=== PATIENT | male | born 1950 | race Caucasian/White ===

== ENCOUNTER 2020-09-24 17:42 | Inpatient (IN) | payer MEDICARE ==
[~2020-09-24] VITALS: Ht 170.2 cm; Wt 106.6 kg
[2020-09-24] MEDS ORDERED: VANCOMYCIN 1GM/NS 250 ML 250 ML IV STA (18:01)
[2020-09-24 18:09] LABS: BASOPHILS # (AUTO) 0.1 (0.0-0.1); BASOPHILS % 0.4 % (0.0-1.0); EOSINOPHILS # (AUTO) 0.1 (0.0-0.4); EOSINOPHILS % 0.4 % (0.0-6.0); HEMATOCRIT 42.5 % (38.2-49.6); HEMOGLOBIN 14.6 g/dL (14.0-18.0); LYMPHOCYTES # (AUTO) 2.8 (1.0-3.2); LYMPHOCYTES % 23.3 % (18.0-39.1); MEAN CORPUSCULAR HEMOGLOBIN 32.7 pg (28-32); MEAN CORPUSCULAR HGB CONC 34.4 g/dL (31-35); MEAN CORPUSCULAR VOLUME 95.1 fL (81-99); MONOCYTES # (AUTO) 1.3 (0.2-0.8); NEUTROPHILS # (AUTO) 7.3 (2.1-6.9); NEUTROPHILS % 61.5 % (38.7-80.0); PLATELET COUNT 301 x10e3/uL (140-360); RED BLOOD COUNT 4.47 x10e6/uL (4.3-5.7); RED CELL DISTRIBUTION WIDTH 14.4 % (11.7-14.4)
[2020-09-24] MEDS: CEFEPIME 1GM/NS 0.9% 50 ML 50 ML IV SCH (18:15)
[2020-09-24] MEDS ORDERED: LOSARTAN POTASS25 MG PO (18:26)
[2020-09-24] MEDS ORDERED: CLOPIDOGREL75 MG PO (18:26)
[2020-09-24] MEDS ORDERED: VERAPAMIL ER120 M1 PO (18:26)
[2020-09-24] MEDS ORDERED: CLONIDINE HCL0.1 MG PO (18:26)
[2020-09-24] MEDS ORDERED: METOPROLOL TART50 MG PO (18:26)
[2020-09-24] MEDS ORDERED: SPIRONOLACTONE25 MG PO (18:26)
[2020-09-24 18:32] LABS: ALANINE AMINOTRANSFERASE 28 IU/L (0-55); ALBUMIN 3.8 g/dL (3.5-5.0); ALBUMIN/GLOBULIN RATIO 0.9 (0.8-2.0); ALKALINE PHOSPHATASE 90 IU/L (40-150); ANION GAP 15.2 mmol/L (8-16); BLOOD UREA NITROGEN 27 mg/dL (7-26); BUN/CREATININE RATIO 22 (6-25); CALCIUM 10.4 mg/dL (8.4-10.2); CARBON DIOXIDE 27 mmol/L (22-29); CHLORIDE 100 mmol/L (98-107); CREATINE KINASE 116 IU/L (30-200); CREATININE, SERUM 1.24 mg/dL (0.72-1.25); EST GLOMERULAR FILTRATION RATE 58 ML/MIN (60-); GLUCOSE 96 mg/dL (74-118); POTASSIUM 4.2 mmol/L (3.5-5.1); SODIUM 138 mmol/L (136-145)
[2020-09-24] MEDS ORDERED: FINASTERIDE5 MG PO (18:54)
[2020-09-24] MEDS ORDERED: OMEPRAZOLE40 MG PO (18:54)
[2020-09-24] MEDS ORDERED: ASPIRIN CHEW81 MG PO (18:54)
[2020-09-24] MEDS ORDERED: LIPITOR20 MG PO (18:54)
[2020-09-24] MEDS ORDERED: GLIMEPIRIDE2 MG PO (18:54)
[2020-09-24] MEDS ORDERED: ALLOPURINOL300 MG PO (18:54)
[2020-09-24] MEDS ORDERED: CHLORTHALIDONE25 MG PO (18:54)
[2020-09-24] MEDS ORDERED: DEXTROSE 50% SYRINGE 50 ML IV PRN (21:00)
[2020-09-24] MEDS: INSULIN REGULAR, HUMAN 100 UNIT/1 ML 3ML VIAL SQ SCH (21:00)
[2020-09-24 21:10] VITALS: BP 109/57
[2020-09-24 21:23] VITALS: BP 146/73
[2020-09-24] MEDS: ONDANSETRON HCL INJ 2MG/ML 2ML 2 MG/ML VIAL IV PRN (23:08)
[2020-09-25] VITALS: BP 117/67
[2020-09-25] MEDS: PROMETHAZINE 12.5MG/ NACL 0.9% 12.5 MG/50 ML BAG IV PRN ×2 (01:22→20:49)
[2020-09-25] MEDS: MORPHINE SULFATE 2 MG/ML SYR 1ML IV PRN ×5 (01:22→20:49)
[2020-09-25] MEDS ORDERED: SODIUM CHLORIDE 0.9% 250ML 250 ML ONE (01:27)
[2020-09-25 04:00] VITALS: BP 140/58
[2020-09-25 05:22] LABS: BASOPHILS % 0.3 % (0.0-1.0); EOSINOPHILS % 0.2 % (0.0-6.0); HEMOGLOBIN 12.6 g/dL (14.0-18.0); LYMPHOCYTES # (AUTO) 0.9 (1.0-3.2); LYMPHOCYTES % 8.2 % (18.0-39.1); MEAN CORPUSCULAR HEMOGLOBIN 32.7 pg (28-32); MEAN CORPUSCULAR HGB CONC 34.1 g/dL (31-35); MEAN CORPUSCULAR VOLUME 96.1 fL (81-99); MONOCYTES # (AUTO) 1.2 (0.2-0.8); MONOCYTES % 10.7 % (4.4-11.3); NEUTROPHILS # (AUTO) 8.8 (2.1-6.9); NEUTROPHILS % 78.5 % (38.7-80.0); PLATELET COUNT 240 x10e3/uL (140-360); RED BLOOD COUNT 3.85 x10e6/uL (4.3-5.7); RED CELL DISTRIBUTION WIDTH 14.5 % (11.7-14.4)
[2020-09-25 05:59] LABS: ALBUMIN/GLOBULIN RATIO 0.9 (0.8-2.0); ANION GAP 13.5 mmol/L (8-16); CALCIUM 9.1 mg/dL (8.4-10.2); CREATININE, SERUM 1.23 mg/dL (0.72-1.25); POTASSIUM 4.5 mmol/L (3.5-5.1)
[2020-09-25] MEDS: INSULIN REGULAR, HUMAN 100 UNIT/1 ML 3ML VIAL SQ SCH ×4 (07:30→20:51)
[2020-09-25] MEDS: CHLORTHALIDONE 25 MG TAB PO SCH (08:00)
[2020-09-25] MEDS: SPIRONOLACTONE 25 MG TAB PO SCH (08:00)
[2020-09-25] MEDS: ASPIRIN 81 MG CHEW TAB PO SCH (08:00)
[2020-09-25] MEDS: METOPROLOL TARTRATE 50 MG TAB PO SCH ×3 (08:01→20:50)
[2020-09-25] MEDS: ALLOPURINOL 300 MG TAB PO SCH (08:10)
[2020-09-25] MEDS: FINASTERIDE 5 MG TAB PO SCH (08:10)
[2020-09-25] MEDS: CLOPIDOGREL BISULFATE 75 MG TAB PO SCH (08:10)
[2020-09-25] MEDS: PANTOPRAZOLE SOD 40 MG TABEC PO SCH (08:10)
[2020-09-25 08:48] VITALS: BP 133/65
[2020-09-25] MEDS: LOSARTAN POTASSIUM 25 MG TAB PO SCH ×3 (09:00→20:50)
[2020-09-25] MEDS ORDERED: GLIMEPIRIDE 2 MG TAB PO SCH (09:00)
[2020-09-25] MEDS: VANCOMYCIN 1GM/NS 250 ML 250 ML IV SCH ×2 (10:20→22:06)
[2020-09-25] MEDS: DIPHENHYDRAMINE HCL INJ 50 MG/ML VIAL IV PRN ×3 (10:20→22:06)
[2020-09-25 12:00] VITALS: BP 124/54
[2020-09-25] MEDS: VERAPAMIL HCL 120 MG TABSR PO SCH ×3 (12:30→20:49)
[2020-09-25 16:00] VITALS: BP 124/57
[2020-09-25] MEDS: BALSAM PERU/CASTOR OIL 60 GM OINT...G. TP SCH (17:00)
[2020-09-25] MEDS: CEFEPIME 1GM/NS 0.9% 50 ML 50 ML IV SCH (17:00)
[2020-09-25 20:00] VITALS: BP 153/54
[2020-09-25] MEDS: CLONIDINE HCL 0.1 MG TAB PO SCH (20:50)
[2020-09-25] MEDS: ATORVASTATIN 20 MG TAB PO SCH (20:50)
[2020-09-26] VITALS (9 sets, daily range): BP systolic 97–148; BP diastolic 42–78
[2020-09-26] MEDS: MORPHINE SULFATE 2 MG/ML SYR 1ML IV PRN ×5 (00:44→22:28)
[2020-09-26] MEDS: INSULIN REGULAR, HUMAN 100 UNIT/1 ML 3ML VIAL SQ SCH ×4 (07:30→20:41)
[2020-09-26] MEDS: VERAPAMIL HCL 120 MG TABSR PO SCH ×3 (08:57→21:00)
[2020-09-26] MEDS: ASPIRIN 81 MG CHEW TAB PO SCH (08:57)
[2020-09-26] MEDS: SPIRONOLACTONE 25 MG TAB PO SCH (08:57)
[2020-09-26] MEDS: LOSARTAN POTASSIUM 25 MG TAB PO SCH ×3 (08:58→21:00)
[2020-09-26] MEDS: CHLORTHALIDONE 25 MG TAB PO SCH (08:58)
[2020-09-26] MEDS: CLOPIDOGREL BISULFATE 75 MG TAB PO SCH (08:59)
[2020-09-26] MEDS: FINASTERIDE 5 MG TAB PO SCH (08:59)
[2020-09-26] MEDS: PANTOPRAZOLE SOD 40 MG TABEC PO SCH (08:59)
[2020-09-26] MEDS: ALLOPURINOL 300 MG TAB PO SCH (08:59)
[2020-09-26] MEDS: METOPROLOL TARTRATE 50 MG TAB PO SCH ×3 (08:59→20:47)
[2020-09-26] MEDS: BALSAM PERU/CASTOR OIL 60 GM OINT...G. TP SCH (09:00)
[2020-09-26] MEDS: VANCOMYCIN 1GM/NS 250 ML 250 ML IV SCH ×2 (10:43→23:16)
[2020-09-26] MEDS: DIPHENHYDRAMINE HCL INJ 50 MG/ML VIAL IV PRN ×3 (10:50→23:16)
[2020-09-26] MEDS: CEFEPIME 1GM/NS 0.9% 50 ML 50 ML IV SCH (17:51)
[2020-09-26] MEDS: ATORVASTATIN 20 MG TAB PO SCH (20:47)
[2020-09-26] MEDS: CLONIDINE HCL 0.1 MG TAB PO SCH (21:00)
[2020-09-26] MEDS: ONDANSETRON HCL INJ 2MG/ML 2ML 2 MG/ML VIAL IV PRN (22:28)
[2020-09-27] VITALS (7 sets, daily range): BP systolic 99–141; BP diastolic 52–67
[2020-09-27 05:57] LABS: BASOPHILS % 0.5 % (0.0-1.0); EOSINOPHILS # (AUTO) 0.1 (0.0-0.4); EOSINOPHILS % 1.1 % (0.0-6.0); HEMATOCRIT 31.8 % (38.2-49.6); HEMOGLOBIN 10.7 g/dL (14.0-18.0); LYMPHOCYTES # (AUTO) 1.7 (1.0-3.2); LYMPHOCYTES % 20.2 % (18.0-39.1); MEAN CORPUSCULAR HEMOGLOBIN 32.3 pg (28-32); MEAN CORPUSCULAR HGB CONC 33.6 g/dL (31-35); MEAN CORPUSCULAR VOLUME 96.1 fL (81-99); MONOCYTES # (AUTO) 1.2 (0.2-0.8); MONOCYTES % 14.1 % (4.4-11.3); NEUTROPHILS % 60.4 % (38.7-80.0); PLATELET COUNT 236 x10e3/uL (140-360); RED BLOOD COUNT 3.31 x10e6/uL (4.3-5.7); RED CELL DISTRIBUTION WIDTH 14.4 % (11.7-14.4)
[2020-09-27] MEDS: MORPHINE SULFATE 2 MG/ML SYR 1ML IV PRN ×3 (06:05→19:51)
[2020-09-27] MEDS: ONDANSETRON HCL INJ 2MG/ML 2ML 2 MG/ML VIAL IV PRN ×3 (06:05→19:51)
[2020-09-27 06:22] LABS: ANION GAP 12.6 mmol/L (8-16); BLOOD UREA NITROGEN 28 mg/dL (7-26); BUN/CREATININE RATIO 27 (6-25); CALCIUM 8.8 mg/dL (8.4-10.2); CARBON DIOXIDE 26 mmol/L (22-29); CHLORIDE 102 mmol/L (98-107); CREATININE, SERUM 1.04 mg/dL (0.72-1.25); EST GLOMERULAR FILTRATION RATE > 60 ML/MIN (60-); GLUCOSE 119 mg/dL (74-118); POTASSIUM 4.6 mmol/L (3.5-5.1); SODIUM 136 mmol/L (136-145)
[2020-09-27] MEDS: SPIRONOLACTONE 25 MG TAB PO SCH (09:39)
[2020-09-27] MEDS: ASPIRIN 81 MG CHEW TAB PO SCH (09:39)
[2020-09-27] MEDS: VERAPAMIL HCL 120 MG TABSR PO SCH ×3 (09:40→20:26)
[2020-09-27] MEDS: BALSAM PERU/CASTOR OIL 60 GM OINT...G. TP SCH (09:40)
[2020-09-27] MEDS: CHLORTHALIDONE 25 MG TAB PO SCH (09:40)
[2020-09-27] MEDS: LOSARTAN POTASSIUM 25 MG TAB PO SCH ×3 (09:40→20:26)
[2020-09-27] MEDS: PANTOPRAZOLE SOD 40 MG TABEC PO SCH (09:40)
[2020-09-27] MEDS: FINASTERIDE 5 MG TAB PO SCH (09:40)
[2020-09-27] MEDS: ALLOPURINOL 300 MG TAB PO SCH (09:40)
[2020-09-27] MEDS: CLOPIDOGREL BISULFATE 75 MG TAB PO SCH (09:40)
[2020-09-27] MEDS: METOPROLOL TARTRATE 50 MG TAB PO SCH ×3 (09:40→20:27)
[2020-09-27] MEDS: VANCOMYCIN 1GM/NS 250 ML 250 ML IV SCH ×2 (11:18→23:50)
[2020-09-27] MEDS: DIPHENHYDRAMINE HCL INJ 50 MG/ML VIAL IV PRN (11:18)
[2020-09-27] MEDS: CEFEPIME 1GM/NS 0.9% 50 ML 50 ML IV SCH (13:40)
[2020-09-27] MEDS ORDERED: ENOXAPARIN SOD INJ 40 MG/0.4 ML SYR SC SCH (17:00)
[2020-09-27] MEDS: CLONIDINE HCL 0.1 MG TAB PO SCH (20:26)
[2020-09-27] MEDS: ATORVASTATIN 20 MG TAB PO SCH (20:27)
[2020-09-28] VITALS: BP 120/63
[2020-09-28] MEDS: DIPHENHYDRAMINE HCL INJ 50 MG/ML VIAL IV PRN (00:18)
[2020-09-28] MEDS: MORPHINE SULFATE 2 MG/ML SYR 1ML IV PRN (00:18)
[2020-09-28] MEDS: CEFEPIME 1GM/NS 0.9% 50 ML 50 ML IV SCH ×2 (03:00→14:00)
[2020-09-28 04:25] VITALS: BP 112/68
[2020-09-28 07:35] VITALS: BP 98/71
[2020-09-28 08:30] VITALS: BP 98/71
[2020-09-28] MEDS: CHLORTHALIDONE 25 MG TAB PO SCH (09:00)
[2020-09-28] MEDS: METOPROLOL TARTRATE 50 MG TAB PO SCH (09:00)
[2020-09-28] MEDS: VERAPAMIL HCL 120 MG TABSR PO SCH (09:00)
[2020-09-28] MEDS: LOSARTAN POTASSIUM 25 MG TAB PO SCH (09:00)
[2020-09-28] MEDS: BALSAM PERU/CASTOR OIL 60 GM OINT...G. TP SCH (09:03)
[2020-09-28] MEDS: SPIRONOLACTONE 25 MG TAB PO SCH (09:03)
[2020-09-28] MEDS: ASPIRIN 81 MG CHEW TAB PO SCH (09:03)
[2020-09-28] MEDS: PANTOPRAZOLE SOD 40 MG TABEC PO SCH (09:03)
[2020-09-28] MEDS: FINASTERIDE 5 MG TAB PO SCH (09:03)
[2020-09-28] MEDS: ALLOPURINOL 300 MG TAB PO SCH (09:03)
[2020-09-28] MEDS: CLOPIDOGREL BISULFATE 75 MG TAB PO SCH (09:03)
[2020-09-28 09:41] VITALS: BP 108/71
[2020-09-28] MEDS: VANCOMYCIN 1GM/NS 250 ML 250 ML IV SCH (11:40)
[2020-09-28 13:44] VITALS: BP 119/82
== END 2020-09-28 15:40 | disposition home or self-care (01) | DRG 603 ==
LOC: ER 18:28 → ERHOLD 18:35 → MED/SURG3 21:08
PROVIDERS: ADMIT Family Medicine; ATTEND Family Medicine
PROC: 06HY33Z Insertion of Infusion Device into Lower Vein, Percutaneous Approach (ICD-10-PCS; principal; 2020-09-24)
DX: L03.115 Cellulitis of right lower limb (principal); L97.518 Non-pressure chronic ulcer of other part of right foot with other specified severity; I12.9 Hypertensive chronic kidney disease with stage 1 through stage 4 chronic kidney disease, or unspecified chronic kidney disease; N18.32 Chronic kidney disease, stage 3b; E11.51 Type 2 diabetes mellitus with diabetic peripheral angiopathy without gangrene; Z79.899 Other long term (current) drug therapy; I25.10 Atherosclerotic heart disease of native coronary artery without angina pectoris; S91.111A Laceration without foreign body of right great toe without damage to nail, initial encounter; W19.XXXA Unspecified fall, initial encounter; E66.9 Obesity, unspecified; Z68.36 Body mass index [BMI] 36.0-36.9, adult; Z95.820 Peripheral vascular angioplasty status with implants and grafts; M10.9 Gout, unspecified; I47.9 Paroxysmal tachycardia, unspecified; N40.0 Benign prostatic hyperplasia without lower urinary tract symptoms; E78.5 Hyperlipidemia, unspecified; I11.0 Hypertensive heart disease with heart failure; I50.9 Heart failure, unspecified; D64.9 Anemia, unspecified
CPT/HCPCS: 36415; 80048; 80053; 80202; 82550; 82553; 82948; 83605; 84484; 85025; 87040; 93926; 93971; 99251; 99283; J0692; J1200; J1650; J2270; J2405; J2550; J3370; J7050; U0002

== ENCOUNTER → 2020-10-11 | Outpatient (RCR) | payer MEDICARE ==
[~2020-10-11] MED LIST: ALLOPURINOL300 MG PO; ASPIRIN CHEW81 MG PO; CHLORTHALIDONE25 MG PO; CLONIDINE HCL0.1 MG PO; CLOPIDOGREL75 MG PO; FINASTERIDE5 MG PO; GLIMEPIRIDE2 MG PO; LIPITOR20 MG PO; LOSARTAN POTASS25 MG PO; METOPROLOL TART50 MG PO; OMEPRAZOLE40 MG PO; SPIRONOLACTONE25 MG PO; VERAPAMIL ER120 M1 PO
== END ==
LOC: WCC 12:50
PROVIDERS: ATTEND Family Medicine
DX: E11.51 Type 2 diabetes mellitus with diabetic peripheral angiopathy without gangrene (principal); E11.65 Type 2 diabetes mellitus with hyperglycemia; S81.801A Unspecified open wound, right lower leg, initial encounter; S91.101A Unspecified open wound of right great toe without damage to nail, initial encounter; L03.119 Cellulitis of unspecified part of limb; I87.2 Venous insufficiency (chronic) (peripheral); R60.0 Localized edema; I12.9 Hypertensive chronic kidney disease with stage 1 through stage 4 chronic kidney disease, or unspecified chronic kidney disease; I10 Essential (primary) hypertension; I25.10 Atherosclerotic heart disease of native coronary artery without angina pectoris; D64.9 Anemia, unspecified; E66.3 Overweight; F33.0 Major depressive disorder, recurrent, mild; M1A.9XX0 Chronic gout, unspecified, without tophus (tophi); N40.0 Benign prostatic hyperplasia without lower urinary tract symptoms; Y92.099 Unspecified place in other non-institutional residence as the place of occurrence of the external cause

== ENCOUNTER 2020-10-31 11:23 | Outpatient (RCR) | payer MEDICARE ==
[~2020-10-31 11:23] MED LIST changes: +LIDOCAINE VISC 2% SOLN 15 ML UDC ONE; +LIDOCAINE/PRILOCAINE 2.5-2.5% KIT ONE
== END 2020-11-11 | disposition still patient (30) ==
LOC: WCC 11:23
PROVIDERS: ATTEND Family Medicine
DX: E11.51 Type 2 diabetes mellitus with diabetic peripheral angiopathy without gangrene (principal); E11.65 Type 2 diabetes mellitus with hyperglycemia; S81.801A Unspecified open wound, right lower leg, initial encounter; I87.2 Venous insufficiency (chronic) (peripheral); L03.119 Cellulitis of unspecified part of limb; S91.101A Unspecified open wound of right great toe without damage to nail, initial encounter; I12.9 Hypertensive chronic kidney disease with stage 1 through stage 4 chronic kidney disease, or unspecified chronic kidney disease; R60.0 Localized edema; M1A.9XX0 Chronic gout, unspecified, without tophus (tophi); I10 Essential (primary) hypertension; I25.10 Atherosclerotic heart disease of native coronary artery without angina pectoris; D64.9 Anemia, unspecified; E66.3 Overweight; F33.0 Major depressive disorder, recurrent, mild; N40.0 Benign prostatic hyperplasia without lower urinary tract symptoms; Y92.099 Unspecified place in other non-institutional residence as the place of occurrence of the external cause

== ENCOUNTER 2020-12-05 15:56 | Outpatient (RCR) | payer MEDICARE ==
[~2020-12-05 15:56] MED LIST changes: -LIDOCAINE VISC 2% SOLN 15 ML UDC ONE
== END 2020-12-09 ==
LOC: WCC 15:56
PROVIDERS: ATTEND Family Medicine
DX: E11.51 Type 2 diabetes mellitus with diabetic peripheral angiopathy without gangrene (principal); E11.65 Type 2 diabetes mellitus with hyperglycemia; L03.119 Cellulitis of unspecified part of limb; S81.801A Unspecified open wound, right lower leg, initial encounter; R60.0 Localized edema; I87.2 Venous insufficiency (chronic) (peripheral); M1A.9XX0 Chronic gout, unspecified, without tophus (tophi); I10 Essential (primary) hypertension; I12.9 Hypertensive chronic kidney disease with stage 1 through stage 4 chronic kidney disease, or unspecified chronic kidney disease; I25.10 Atherosclerotic heart disease of native coronary artery without angina pectoris; D64.9 Anemia, unspecified; E66.3 Overweight; F33.0 Major depressive disorder, recurrent, mild; N40.0 Benign prostatic hyperplasia without lower urinary tract symptoms; Y92.099 Unspecified place in other non-institutional residence as the place of occurrence of the external cause

== ENCOUNTER 2020-12-26 15:38 | Outpatient (RCR) | payer MEDICARE ==
[~2020-12-26 15:38] MED LIST changes: +LIDOCAINE VISC 2% SOLN 15 ML UDC ONE; +MUPIROCIN 2% OINT 22 GM TUBE ONE
== END 2021-01-09 ==
LOC: WCC 15:38
PROVIDERS: ATTEND Family Medicine
DX: E11.51 Type 2 diabetes mellitus with diabetic peripheral angiopathy without gangrene (principal); E11.65 Type 2 diabetes mellitus with hyperglycemia; L03.119 Cellulitis of unspecified part of limb; S81.801A Unspecified open wound, right lower leg, initial encounter; R60.0 Localized edema; I87.2 Venous insufficiency (chronic) (peripheral); S80.821A Blister (nonthermal), right lower leg, initial encounter; M1A.9XX0 Chronic gout, unspecified, without tophus (tophi); I10 Essential (primary) hypertension; I12.9 Hypertensive chronic kidney disease with stage 1 through stage 4 chronic kidney disease, or unspecified chronic kidney disease; I25.10 Atherosclerotic heart disease of native coronary artery without angina pectoris; D64.9 Anemia, unspecified; E66.3 Overweight; F33.0 Major depressive disorder, recurrent, mild; N40.0 Benign prostatic hyperplasia without lower urinary tract symptoms; Y92.099 Unspecified place in other non-institutional residence as the place of occurrence of the external cause

== ENCOUNTER 2021-02-06 13:33 | Outpatient (RCR) | payer MEDICARE ==
[~2021-02-06 13:33] MED LIST changes: -LIDOCAINE/PRILOCAINE 2.5-2.5% KIT ONE; -MUPIROCIN 2% OINT 22 GM TUBE ONE
[2021-02-06] MEDS ORDERED: LIDOCAINE VISC 2% SOLN 15 ML UDC ONE (14:20)
== END 2021-02-08 ==
LOC: WCC 13:33
PROVIDERS: ATTEND Family Medicine
DX: E11.51 Type 2 diabetes mellitus with diabetic peripheral angiopathy without gangrene (principal); E11.65 Type 2 diabetes mellitus with hyperglycemia; I12.9 Hypertensive chronic kidney disease with stage 1 through stage 4 chronic kidney disease, or unspecified chronic kidney disease; I87.332 Chronic venous hypertension (idiopathic) with ulcer and inflammation of left lower extremity; L97.821 Non-pressure chronic ulcer of other part of left lower leg limited to breakdown of skin; L03.119 Cellulitis of unspecified part of limb; I87.2 Venous insufficiency (chronic) (peripheral); R60.0 Localized edema; I10 Essential (primary) hypertension; M1A.9XX0 Chronic gout, unspecified, without tophus (tophi); D64.9 Anemia, unspecified; I25.10 Atherosclerotic heart disease of native coronary artery without angina pectoris; N40.0 Benign prostatic hyperplasia without lower urinary tract symptoms; E66.3 Overweight; F33.0 Major depressive disorder, recurrent, mild; Y92.099 Unspecified place in other non-institutional residence as the place of occurrence of the external cause

== ENCOUNTER 2021-06-05 08:46 | Outpatient (RCR) | payer MEDICARE ==
[~2021-06-05 08:46] MED LIST changes: -LIDOCAINE VISC 2% SOLN 15 ML UDC ONE
== END 2021-06-11 ==
LOC: WCC 08:46
PROVIDERS: ATTEND Family Medicine
DX: E11.51 Type 2 diabetes mellitus with diabetic peripheral angiopathy without gangrene (principal); E11.65 Type 2 diabetes mellitus with hyperglycemia; I87.311 Chronic venous hypertension (idiopathic) with ulcer of right lower extremity; I87.332 Chronic venous hypertension (idiopathic) with ulcer and inflammation of left lower extremity; L97.811 Non-pressure chronic ulcer of other part of right lower leg limited to breakdown of skin; L97.821 Non-pressure chronic ulcer of other part of left lower leg limited to breakdown of skin; I87.2 Venous insufficiency (chronic) (peripheral); L03.119 Cellulitis of unspecified part of limb; R60.0 Localized edema; M1A.9XX0 Chronic gout, unspecified, without tophus (tophi); S80.821A Blister (nonthermal), right lower leg, initial encounter; S80.822A Blister (nonthermal), left lower leg, initial encounter; I12.9 Hypertensive chronic kidney disease with stage 1 through stage 4 chronic kidney disease, or unspecified chronic kidney disease; I10 Essential (primary) hypertension; D64.9 Anemia, unspecified; E66.3 Overweight; F33.0 Major depressive disorder, recurrent, mild; I25.10 Atherosclerotic heart disease of native coronary artery without angina pectoris; N40.0 Benign prostatic hyperplasia without lower urinary tract symptoms; Y92.099 Unspecified place in other non-institutional residence as the place of occurrence of the external cause
CPT/HCPCS: 87071; 87075; 87205

== ENCOUNTER 2021-07-10 08:03 | Outpatient (RCR) | payer MEDICARE ==
[2021-06-12 10:39] LABS: BASOPHILS # (AUTO) 0.1 (0.0-0.1); BASOPHILS % 1.1 % (0.0-1.0); EOSINOPHILS # (AUTO) 0.1 (0.0-0.4); EOSINOPHILS % 0.6 % (0.0-6.0); HEMATOCRIT 41.4 % (38.2-49.6); HEMOGLOBIN 14.3 g/dL (14.0-18.0); LYMPHOCYTES # (AUTO) 2.6 (1.0-3.2); LYMPHOCYTES % 24.8 % (18.0-39.1); MEAN CORPUSCULAR HEMOGLOBIN 34.7 pg (28-32); MEAN CORPUSCULAR HGB CONC 34.5 g/dL (31-35); MEAN CORPUSCULAR VOLUME 100.5 fL (81-99); MONOCYTES % 9.1 % (4.4-11.3); NEUTROPHILS % 57.3 % (38.7-80.0); PLATELET COUNT 286 x10e3/uL (140-360); RED BLOOD COUNT 4.12 x10e6/uL (4.3-5.7); RED CELL DISTRIBUTION WIDTH 13.6 % (11.7-14.4)
[2021-06-12 11:18] LABS: ALBUMIN 3.6 g/dL (3.5-5.0); ANION GAP 14.9 mmol/L (8-16); CALCIUM 9.9 mg/dL (8.4-10.2); CREATININE, SERUM 0.83 mg/dL (0.72-1.25); POTASSIUM 3.9 mmol/L (3.5-5.1)
== END 2021-07-11 ==
LOC: WCC 08:03
PROVIDERS: ATTEND Family Medicine
DX: E11.51 Type 2 diabetes mellitus with diabetic peripheral angiopathy without gangrene (principal); E11.65 Type 2 diabetes mellitus with hyperglycemia; I87.311 Chronic venous hypertension (idiopathic) with ulcer of right lower extremity; I87.332 Chronic venous hypertension (idiopathic) with ulcer and inflammation of left lower extremity; L97.811 Non-pressure chronic ulcer of other part of right lower leg limited to breakdown of skin; L97.821 Non-pressure chronic ulcer of other part of left lower leg limited to breakdown of skin; L03.119 Cellulitis of unspecified part of limb; I87.2 Venous insufficiency (chronic) (peripheral); R60.0 Localized edema; M1A.9XX0 Chronic gout, unspecified, without tophus (tophi); S80.821A Blister (nonthermal), right lower leg, initial encounter; S80.822A Blister (nonthermal), left lower leg, initial encounter; I12.9 Hypertensive chronic kidney disease with stage 1 through stage 4 chronic kidney disease, or unspecified chronic kidney disease; I10 Essential (primary) hypertension; D64.9 Anemia, unspecified; I25.10 Atherosclerotic heart disease of native coronary artery without angina pectoris; N40.0 Benign prostatic hyperplasia without lower urinary tract symptoms; E66.3 Overweight; F33.0 Major depressive disorder, recurrent, mild; Y92.099 Unspecified place in other non-institutional residence as the place of occurrence of the external cause
CPT/HCPCS: 36415; 80053; 83036; 84134; 85025

== ENCOUNTER 2021-07-31 08:44 | Outpatient (RCR) | payer MEDICARE | END 2021-08-11 | LOC: WCC 08:44 | PROVIDERS: ATTEND Family Medicine | DX: E11.51 Type 2 diabetes mellitus with diabetic peripheral angiopathy without gangrene (principal); E11.65 Type 2 diabetes mellitus with hyperglycemia; L97.821 Non-pressure chronic ulcer of other part of left lower leg limited to breakdown of skin; I87.312 Chronic venous hypertension (idiopathic) with ulcer of left lower extremity; L03.119 Cellulitis of unspecified part of limb; I87.2 Venous insufficiency (chronic) (peripheral); I12.9 Hypertensive chronic kidney disease with stage 1 through stage 4 chronic kidney disease, or unspecified chronic kidney disease; M1A.9XX0 Chronic gout, unspecified, without tophus (tophi); R60.0 Localized edema; S80.822A Blister (nonthermal), left lower leg, initial encounter; I25.10 Atherosclerotic heart disease of native coronary artery without angina pectoris; I10 Essential (primary) hypertension; D64.9 Anemia, unspecified; E66.3 Overweight; F33.0 Major depressive disorder, recurrent, mild; N40.0 Benign prostatic hyperplasia without lower urinary tract symptoms; Y92.099 Unspecified place in other non-institutional residence as the place of occurrence of the external cause | CPT/HCPCS: 87071; 87075; 87205 ==

== ENCOUNTER 2021-08-14 08:14 | Outpatient (RCR) | payer MEDICARE ==
[2021-08-14] MEDS ORDERED: LIDOCAINE/PRILOCAINE 2.5-2.5% KIT ONE (16:14)
== END 2021-09-10 ==
LOC: WCC 08:14
PROVIDERS: ATTEND Family Medicine
DX: E11.51 Type 2 diabetes mellitus with diabetic peripheral angiopathy without gangrene (principal); E11.65 Type 2 diabetes mellitus with hyperglycemia; L03.119 Cellulitis of unspecified part of limb; S81.002A Unspecified open wound, left knee, initial encounter; L97.811 Non-pressure chronic ulcer of other part of right lower leg limited to breakdown of skin; I87.311 Chronic venous hypertension (idiopathic) with ulcer of right lower extremity; I87.2 Venous insufficiency (chronic) (peripheral); R60.0 Localized edema; S80.822A Blister (nonthermal), left lower leg, initial encounter; M1A.9XX0 Chronic gout, unspecified, without tophus (tophi); I12.9 Hypertensive chronic kidney disease with stage 1 through stage 4 chronic kidney disease, or unspecified chronic kidney disease; I10 Essential (primary) hypertension; I25.10 Atherosclerotic heart disease of native coronary artery without angina pectoris; D64.9 Anemia, unspecified; N40.0 Benign prostatic hyperplasia without lower urinary tract symptoms; E66.3 Overweight; F33.0 Major depressive disorder, recurrent, mild; W22.03XA Walked into furniture, initial encounter; Y92.099 Unspecified place in other non-institutional residence as the place of occurrence of the external cause

== ENCOUNTER 2021-10-30 08:21 | Outpatient (RCR) | payer MEDICARE | END 2021-11-11 | LOC: WCC 08:21 | PROVIDERS: ATTEND Family Medicine | DX: E11.621 Type 2 diabetes mellitus with foot ulcer (principal); E11.51 Type 2 diabetes mellitus with diabetic peripheral angiopathy without gangrene; E11.65 Type 2 diabetes mellitus with hyperglycemia; L03.116 Cellulitis of left lower limb; L03.115 Cellulitis of right lower limb; L03.119 Cellulitis of unspecified part of limb; L97.511 Non-pressure chronic ulcer of other part of right foot limited to breakdown of skin; L97.411 Non-pressure chronic ulcer of right heel and midfoot limited to breakdown of skin; L97.821 Non-pressure chronic ulcer of other part of left lower leg limited to breakdown of skin; I87.2 Venous insufficiency (chronic) (peripheral); R60.0 Localized edema; M1A.9XX0 Chronic gout, unspecified, without tophus (tophi); I10 Essential (primary) hypertension; I12.9 Hypertensive chronic kidney disease with stage 1 through stage 4 chronic kidney disease, or unspecified chronic kidney disease; D64.9 Anemia, unspecified; I25.10 Atherosclerotic heart disease of native coronary artery without angina pectoris; E66.3 Overweight; F33.0 Major depressive disorder, recurrent, mild; N40.0 Benign prostatic hyperplasia without lower urinary tract symptoms; W22.03XA Walked into furniture, initial encounter; Y92.099 Unspecified place in other non-institutional residence as the place of occurrence of the external cause ==

== ENCOUNTER 2021-11-20 10:03 | Outpatient (RCR) | payer MEDICARE ==
[~2021-11-20 10:03] MED LIST changes: +LIDOCAINE/PRILOCAINE 2.5-2.5% KIT ONE; +MUPIROCIN 2% OINT 22 GM TUBE ONE
== END 2021-12-09 ==
LOC: WCC 10:03
PROVIDERS: ATTEND Family Medicine
DX: E11.51 Type 2 diabetes mellitus with diabetic peripheral angiopathy without gangrene (principal); E11.621 Type 2 diabetes mellitus with foot ulcer; E11.65 Type 2 diabetes mellitus with hyperglycemia; L97.511 Non-pressure chronic ulcer of other part of right foot limited to breakdown of skin; L97.821 Non-pressure chronic ulcer of other part of left lower leg limited to breakdown of skin; L97.811 Non-pressure chronic ulcer of other part of right lower leg limited to breakdown of skin; L97.411 Non-pressure chronic ulcer of right heel and midfoot limited to breakdown of skin; I87.332 Chronic venous hypertension (idiopathic) with ulcer and inflammation of left lower extremity; I87.311 Chronic venous hypertension (idiopathic) with ulcer of right lower extremity; L03.115 Cellulitis of right lower limb; L03.116 Cellulitis of left lower limb; L03.119 Cellulitis of unspecified part of limb; I87.2 Venous insufficiency (chronic) (peripheral); I70.219 Atherosclerosis of native arteries of extremities with intermittent claudication, unspecified extremity; R60.0 Localized edema; I12.9 Hypertensive chronic kidney disease with stage 1 through stage 4 chronic kidney disease, or unspecified chronic kidney disease; I10 Essential (primary) hypertension; M1A.9XX0 Chronic gout, unspecified, without tophus (tophi); I25.10 Atherosclerotic heart disease of native coronary artery without angina pectoris; D64.9 Anemia, unspecified; N40.0 Benign prostatic hyperplasia without lower urinary tract symptoms; E66.3 Overweight; F33.0 Major depressive disorder, recurrent, mild; W22.03XA Walked into furniture, initial encounter; Y92.099 Unspecified place in other non-institutional residence as the place of occurrence of the external cause

== ENCOUNTER → 2021-12-18 | Outpatient (CLI) | payer MEDICARE ==
[~2021-12-18] MED LIST changes: -LIDOCAINE/PRILOCAINE 2.5-2.5% KIT ONE; -MUPIROCIN 2% OINT 22 GM TUBE ONE
== END ==
LOC: US 12:07
PROVIDERS: ATTEND Nurse Practitioner Adult Health
DX: R19.03 Right lower quadrant abdominal swelling, mass and lump (principal)
CPT/HCPCS: 76700; 76856

== ENCOUNTER 2022-02-26 08:39 | Outpatient (RCR) | payer MEDICARE ==
[~2022-02-26 08:39] MED LIST changes: +LIDOCAINE VISC 2% SOLN 15 ML UDC ONE; +MUPIROCIN 2% OINT 22 GM TUBE ONE
== END 2022-03-11 ==
LOC: WCC 08:39
PROVIDERS: ATTEND Family Medicine
DX: E11.51 Type 2 diabetes mellitus with diabetic peripheral angiopathy without gangrene (principal); E11.65 Type 2 diabetes mellitus with hyperglycemia; I87.331 Chronic venous hypertension (idiopathic) with ulcer and inflammation of right lower extremity; I87.332 Chronic venous hypertension (idiopathic) with ulcer and inflammation of left lower extremity; L97.828 Non-pressure chronic ulcer of other part of left lower leg with other specified severity; L97.818 Non-pressure chronic ulcer of other part of right lower leg with other specified severity; L03.119 Cellulitis of unspecified part of limb; I70.219 Atherosclerosis of native arteries of extremities with intermittent claudication, unspecified extremity; I87.2 Venous insufficiency (chronic) (peripheral); R60.0 Localized edema; M1A.9XX0 Chronic gout, unspecified, without tophus (tophi); I12.9 Hypertensive chronic kidney disease with stage 1 through stage 4 chronic kidney disease, or unspecified chronic kidney disease; I10 Essential (primary) hypertension; I25.10 Atherosclerotic heart disease of native coronary artery without angina pectoris; D64.9 Anemia, unspecified; E66.3 Overweight; N40.0 Benign prostatic hyperplasia without lower urinary tract symptoms; W22.03XA Walked into furniture, initial encounter; Y92.099 Unspecified place in other non-institutional residence as the place of occurrence of the external cause

== ENCOUNTER 2022-05-07 08:45 | Outpatient (RCR) | payer MEDICARE ==
[~2022-05-07 08:45] MED LIST changes: -LIDOCAINE VISC 2% SOLN 15 ML UDC ONE; -MUPIROCIN 2% OINT 22 GM TUBE ONE
[2022-05-07] MEDS ORDERED: LIDOCAINE VISC 2% SOLN 15 ML UDC ONE (12:56)
[2022-05-07] MEDS ORDERED: MUPIROCIN 2% OINT 22 GM TUBE ONE (12:56)
== END 2022-05-11 ==
LOC: WCC 08:45
PROVIDERS: ATTEND Family Medicine
DX: E11.51 Type 2 diabetes mellitus with diabetic peripheral angiopathy without gangrene (principal); E11.65 Type 2 diabetes mellitus with hyperglycemia; B96.89 Other specified bacterial agents as the cause of diseases classified elsewhere; I87.311 Chronic venous hypertension (idiopathic) with ulcer of right lower extremity; I87.312 Chronic venous hypertension (idiopathic) with ulcer of left lower extremity; I87.331 Chronic venous hypertension (idiopathic) with ulcer and inflammation of right lower extremity; I87.332 Chronic venous hypertension (idiopathic) with ulcer and inflammation of left lower extremity; L97.511 Non-pressure chronic ulcer of other part of right foot limited to breakdown of skin; L97.811 Non-pressure chronic ulcer of other part of right lower leg limited to breakdown of skin; L97.821 Non-pressure chronic ulcer of other part of left lower leg limited to breakdown of skin; L97.818 Non-pressure chronic ulcer of other part of right lower leg with other specified severity; L97.828 Non-pressure chronic ulcer of other part of left lower leg with other specified severity; L03.116 Cellulitis of left lower limb; L03.119 Cellulitis of unspecified part of limb; S91.102A Unspecified open wound of left great toe without damage to nail, initial encounter; S91.101A Unspecified open wound of right great toe without damage to nail, initial encounter; M1A.9XX0 Chronic gout, unspecified, without tophus (tophi); R60.0 Localized edema; I87.2 Venous insufficiency (chronic) (peripheral); I70.219 Atherosclerosis of native arteries of extremities with intermittent claudication, unspecified extremity; I12.9 Hypertensive chronic kidney disease with stage 1 through stage 4 chronic kidney disease, or unspecified chronic kidney disease; I10 Essential (primary) hypertension; D64.9 Anemia, unspecified; E66.3 Overweight; F33.0 Major depressive disorder, recurrent, mild; I25.10 Atherosclerotic heart disease of native coronary artery without angina pectoris; N40.0 Benign prostatic hyperplasia without lower urinary tract symptoms; W22.03XA Walked into furniture, initial encounter; Y92.099 Unspecified place in other non-institutional residence as the place of occurrence of the external cause
CPT/HCPCS: 36415; 82948

== ENCOUNTER 2022-05-21 08:55 | Outpatient (RCR) | payer MEDICARE ==
[2022-05-21] MEDS ORDERED: MUPIROCIN 2% OINT 22 GM TUBE ONE (12:57)
[2022-05-21] MEDS ORDERED: LIDOCAINE VISC 2% SOLN 15 ML UDC ONE (12:57)
== END 2022-06-11 ==
LOC: WCC 08:55
PROVIDERS: ATTEND Family Medicine
DX: I87.311 Chronic venous hypertension (idiopathic) with ulcer of right lower extremity (principal); I87.312 Chronic venous hypertension (idiopathic) with ulcer of left lower extremity; I87.331 Chronic venous hypertension (idiopathic) with ulcer and inflammation of right lower extremity; E11.51 Type 2 diabetes mellitus with diabetic peripheral angiopathy without gangrene; E11.65 Type 2 diabetes mellitus with hyperglycemia; L97.511 Non-pressure chronic ulcer of other part of right foot limited to breakdown of skin; L97.821 Non-pressure chronic ulcer of other part of left lower leg limited to breakdown of skin; L97.818 Non-pressure chronic ulcer of other part of right lower leg with other specified severity; L97.811 Non-pressure chronic ulcer of other part of right lower leg limited to breakdown of skin; L03.031 Cellulitis of right toe; L03.116 Cellulitis of left lower limb; L03.119 Cellulitis of unspecified part of limb; I70.219 Atherosclerosis of native arteries of extremities with intermittent claudication, unspecified extremity; S91.102A Unspecified open wound of left great toe without damage to nail, initial encounter; R60.0 Localized edema; M1A.9XX0 Chronic gout, unspecified, without tophus (tophi); I87.2 Venous insufficiency (chronic) (peripheral); B96.89 Other specified bacterial agents as the cause of diseases classified elsewhere; I12.9 Hypertensive chronic kidney disease with stage 1 through stage 4 chronic kidney disease, or unspecified chronic kidney disease; I10 Essential (primary) hypertension; I25.10 Atherosclerotic heart disease of native coronary artery without angina pectoris; D64.9 Anemia, unspecified; E66.3 Overweight; F33.0 Major depressive disorder, recurrent, mild; N40.0 Benign prostatic hyperplasia without lower urinary tract symptoms; W22.03XA Walked into furniture, initial encounter; Y92.099 Unspecified place in other non-institutional residence as the place of occurrence of the external cause

== ENCOUNTER → 2022-11-07 | Outpatient (CLI) | payer MEDICARE | LOC: US 09:15 | PROVIDERS: ATTEND Family Medicine | DX: R94.4 Abnormal results of kidney function studies (principal) | CPT/HCPCS: 76770 ==

== ENCOUNTER → 2022-12-03 | Outpatient (CLI) | payer MEDICARE ==
[~2022-12-03] MED LIST changes: +IOPAMIDOL 370 MG/ML 100 ML INFUS..BTL INJ ONE
[2022-12-03 08:04] LABS: CREATININE, SERUM 1.07 mg/dL (0.72-1.25)
== END ==
LOC: CT 06:54
PROVIDERS: ATTEND Nurse Practitioner Adult Health
DX: N28.1 Cyst of kidney, acquired (principal)
CPT/HCPCS: 36415; 74178; 82565; 84520; Q9967

== ENCOUNTER 2023-01-05 12:00 | Outpatient (RCR) | payer MEDICARE ==
[~2023-01-05 12:00] MED LIST changes: -IOPAMIDOL 370 MG/ML 100 ML INFUS..BTL INJ ONE
[2023-01-05] MEDS ORDERED: MUPIROCIN 2% OINT 22 GM TUBE ONE (12:48)
== END 2023-01-09 ==
LOC: WCC 12:00
PROVIDERS: ATTEND Plastic Surgery
DX: S61.401A Unspecified open wound of right hand, initial encounter (principal); S51.801A Unspecified open wound of right forearm, initial encounter; S61.501A Unspecified open wound of right wrist, initial encounter

== ENCOUNTER 2023-01-12 09:49 | Outpatient (RCR) | payer MEDICARE ==
[2023-01-12] MEDS ORDERED: MUPIROCIN 2% OINT 22 GM TUBE ONE (12:53)
[2023-01-12] MEDS ORDERED: LIDOCAINE VISC 2% SOLN 15 ML UDC ONE (12:53)
== END 2023-02-08 ==
LOC: WCC 09:49
PROVIDERS: ATTEND Plastic Surgery
DX: S61.401A Unspecified open wound of right hand, initial encounter (principal); S61.501A Unspecified open wound of right wrist, initial encounter; S51.801A Unspecified open wound of right forearm, initial encounter